=== PATIENT | female | born 1980 | race Caucasian/White ===

== ENCOUNTER → 2017-12-03 | Outpatient (CLI) | payer OTHER | LOC: LAB 17:05 → LAB SHORT 17:05 | DX: L08.9 Local infection of the skin and subcutaneous tissue, unspecified (principal); L40.8 Other psoriasis; L21.8 Other seborrheic dermatitis | CPT/HCPCS: 87070; 87205 ==

== ENCOUNTER → 2018-07-30 | Outpatient (CLI) | payer OTHER | END | disposition home or self-care (01) | LOC: LAB EV 14:30 → LAB SHORT 14:30 | DX: R10.30 Lower abdominal pain, unspecified (principal) | CPT/HCPCS: 87086 ==

== ENCOUNTER 2019-08-08 05:46 | Inpatient (IN) | payer OTHER ==
[~2019-08-08] VITALS: Ht 162.6 cm; Wt 95.6 kg
[~2019-08-08 05:46] MED LIST: CELE200 PO; DIAZ10 PO; DOCU100 PO; METO25ER PO; MIRALAX17 G1 PO; OMEP20ER PO; TIAG4 PO; VITAMIN D325 MCG PO; [UNRECOGNIZED DRUG - OTHER] PO
--- NOTE | 2019-08-08 07:22 | NUR ---
Ambulatory in Day Surgery. History, Chart, Medications and Allergies reviewed before start of procedure. Lungs clear T/O to Auscultation. Patient confirms NPO status and agrees with scheduled surgery. Pre-Op teaching done. Pt verbalizes understanding. Patient States Post-Procedure ride home has been arranged.
--- NOTE | 2019-08-08 08:23 | NUR ---
08/08/19 0823 Eileen Kimbrough PLACED INTRAOPERATIVELY BY DR. BALBUENA
[2019-08-08 13:29] LABS: BASOPHILS ABSOLUTE AUTO 0.05 K/mm3 (0.00-0.23); BASOPHILS PERCENT AUTO 0 % (0-2); EOSINOPHILS PERCENT AUTO 0 % (0-6); Hematocrit 39.8 % (33.0-51.0); Hemoglobin 12.6 g/dL (11.5-16.0); IMMATURE GRAN ABSOLUTE AUTO 0.19 K/mm3 (0.00-0.10); IMMATURE GRAN PERCENT AUTO 1 % (0-1); LYMPHOCYTES ABSOLUTE AUTO 1.39 K/mm3 (0.84-5.20); LYMPHOCYTES PERCENT AUTO 6 % (21-46); MONOCYTES ABSOLUTE AUTO 0.62 K/mm3 (0.16-1.47); MONOCYTES PERCENT AUTO 3 % (4-13); Mean Corpuscular HGB 29.4 pg (26.0-34.0); Mean Corpuscular HGB Conc 31.7 g/dL (31.5-36.5); Mean Corpuscular Volume 93 fL (80-100); Mean Platelet Volume 10.9 fL (9.1-12.4); NEUTROPHILS ABSOLUTE AUTO 20.58 K/mm3 (1.96-9.15); NEUTROPHILS PERCENT AUTO 90 % (41-73); Platelet Count 287 K/mm3 (150-400); RDW Coefficient Variation 12.6 % (11.7-14.2); RDW Standard Deviation 43.2 fL (35.1-46.3); Red Blood Cell Count 4.28 M/mm3 (3.80-5.20); White Blood Cell Count 22.83 K/mm3 (4.00-11.30)
--- NOTE | 2019-08-08 19:22 | NUR ---
SHIFT SUMMARY PT POD 0 JEAN. TRANSVERSE INCISION WITH MEDIPORE DRESSING, SCANT AMT DRAINAGE PRESENT ON STERI STRIPS X'S 2 AND MEDIPORE DRESSING. OSMAN DRAINING CLEAR YELLOW URINE. PAIN MANAGED PER EMAR.
--- NOTE | 2019-08-08 19:35 | NUR ---
PERMISSION FOR CARE PT GAVE CONSENT FOR THIS STUDENT NURSE TO PROVIDE CARE ON 08/09/19
--- NOTE | 2019-08-09 03:31 | NUR ---
SHIFT SUMMARY: PT POD #1 FOR JEAN. TRANSVERSE DRESSING INTACT WITH SMALL AMOUNT OF BLOODY DRG. SS X2 CDI. PT BERNARDA PO AND DENIES N/V. PAIN MANAGED WITH TORADOL AND 5MG OXY PER EMAR. HR IN LOW 100'S AFTER GIVING SCHED METOPROLOL. GIVEN TYLENOL IN BEGINNING OF SHIFT FOR LOW GRADE TEMP. MOM AT BEDSIDE AND SUPPORTIVE W/CARE. WILL D/C OSMAN CATHETER LATER THIS MORNING.
[2019-08-09 05:09] LABS: BASOPHILS ABSOLUTE AUTO 0.03 K/mm3 (0.00-0.23); BASOPHILS PERCENT AUTO 0 % (0-2); EOSINOPHILS ABSOLUTE AUTO 0.01 K/mm3 (0.00-0.68); EOSINOPHILS PERCENT AUTO 0 % (0-6); Hematocrit 33.7 % (33.0-51.0); Hemoglobin 10.6 g/dL (11.5-16.0); IMMATURE GRAN PERCENT AUTO 1 % (0-1); LYMPHOCYTES PERCENT AUTO 23 % (21-46); MONOCYTES ABSOLUTE AUTO 1.07 K/mm3 (0.16-1.47); MONOCYTES PERCENT AUTO 7 % (4-13); Mean Corpuscular HGB 29.6 pg (26.0-34.0); Mean Corpuscular HGB Conc 31.5 g/dL (31.5-36.5); Mean Corpuscular Volume 94 fL (80-100); Mean Platelet Volume 10.9 fL (9.1-12.4); NEUTROPHILS ABSOLUTE AUTO 11.16 K/mm3 (1.96-9.15); NEUTROPHILS PERCENT AUTO 69 % (41-73); Platelet Count 267 K/mm3 (150-400); RDW Coefficient Variation 12.7 % (11.7-14.2); RDW Standard Deviation 43.7 fL (35.1-46.3); Red Blood Cell Count 3.58 M/mm3 (3.80-5.20); White Blood Cell Count 16.07 K/mm3 (4.00-11.30)
[2019-08-09 14:09] LABS: HPV 16 Negative (Negative); HPV 18 Negative (Negative); HPV OTHER HR TYPES Negative (Negative)
--- NOTE | 2019-08-09 15:56 | NUR ---
PT GAVE THIS STUDENT RN PERMISSION TO HELP CARE FOR HER ON 08/10/19.
--- NOTE | 2019-08-09 19:19 | NUR ---
SHIFT SUMMARY PT POD 1 JEAN. TRANSVERSE DRESSING C/D/I. PAIN MANAGED PER EMAR. PT AMBULATING TO BATHROOM AND SHORT DISTANCES IN HALLWAY. VOIDING WELL, GOOD PO INTAKE-SALINE LOCKED. POSSIBLE DISCHARGE HOME IF NO COMPLICATIONS.
--- NOTE | 2019-08-10 03:23 | NUR ---
SHIFT SUMMARY: PT POD #2 JEAN. TRANSVERSE DRESSING CHANGED THIS SHIFT. PAIN MANAGED WITH MOTRIN AND OXY PER EMAR. PT AMBULATING INDEPENDENTLY. REPORTS PASSING FLATUS. MINIMAL BLOODY DRG TO ROSIE PAD. PT BERNARDA PO AND VOIDING WELL. MOM AT BEDSIDE. PLAN FOR POSSIBLE DISCHARGE TODAY.
[2019-08-10] MEDS ORDERED: ACET325 PO (09:01)
[2019-08-10] MEDS ORDERED: Percocet 5-3251 EACH PO (09:02)
--- NOTE | 2019-08-10 11:11 | NUR ---
DISCHARGE: PACKET PRINTED AND PT/PT MOM EDUCATED. PT SENT WITH SCRIPTS. PT LEFT UNIT VIA WHEELCHAIR WITH ELIAS, CUSTOMER SERVICE SALES ASSOCIATE AND MOTHER AT ABOUT 1005
== END 2019-08-10 10:15 | disposition home or self-care (01) | DRG 743 ==
LOC: ORSCMMR 05:46 → ORD 07:30 → ORSCMMR 07:30 → ORD 09:30 → SURS 11:28 → ORSCMMR 11:28 → SURS 12:27
PROVIDERS: ADMIT Obstetrics & Gynecology
PROC: 0UT90ZL Resection of Uterus, Supracervical, Open Approach (ICD-10-PCS; principal; 2019-08-08 07:30)
PROC: 0UT70ZZ Resection of Bilateral Fallopian Tubes, Open Approach (ICD-10-PCS; 2019-08-08 07:30)
PROC: 0UT00ZZ Resection of Right Ovary, Open Approach (ICD-10-PCS; 2019-08-08 07:30)
DX: N83.291 Other ovarian cyst, right side (principal); N92.1 Excessive and frequent menstruation with irregular cycle; R10.2 Pelvic and perineal pain
CPT/HCPCS: 36415; 85025; 87624; A9270; A9270-GY; G0123; J0330; J0690; J1100; J1170; J1650; J1885; J2250; J2370; J2405; J2704; J3010; J7120

== ENCOUNTER 2023-12-30 10:21 | Inpatient (IN) | payer OTHER ==
[~2023-12-30] VITALS: Ht 172.7 cm; Wt 90.0 kg
[~2023-12-30 10:21] MED LIST changes: +ACET325 PO; +Percocet 5-3251 EACH PO
[2023-12-30] MEDS ORDERED: NS 1,000 ML IV SCH (10:35)
[2023-12-30] MEDS ORDERED: Magnesium Sulf 2 GM/Water 50ML 50 ML IV ONE (10:35)
[2023-12-30 10:45] LABS: Source, Urine Straight Cath
[2023-12-30 10:50] LABS: Appearance, Urine Hazy (Clear); Bilirubin, Urine Neg (Neg); Blood, Urine 1+ (Neg); Glucose Qualitative, Urine Neg (Neg); Ketones, Urine 2+ (Neg); Leukocyte Esterase, Urine Neg (Neg); Nitrite, Urine Neg (Neg); Protein, Urine 2+ (Neg); Specific Gravity, Urine 1.025 (1.003-1.022); Urobilinogen, Urine NORM (Normal)
[2023-12-30] MEDS ORDERED: Midazolam HCl 1MG / ML 2ML Vial IV ONE (10:50)
[2023-12-30 10:52] LABS: BASOPHILS ABSOLUTE AUTO 0.05 K/mm3 (0.00-0.23); BASOPHILS PERCENT AUTO 0 % (0-2); EOSINOPHILS ABSOLUTE AUTO 0.07 K/mm3 (0.00-0.68); EOSINOPHILS PERCENT AUTO 1 % (0-6); Hematocrit 44.6 % (33.0-51.0); Hemoglobin 14.8 g/dL (11.5-16.0); IMMATURE GRAN PERCENT AUTO 2 % (0-1); LYMPHOCYTES ABSOLUTE AUTO 2.58 K/mm3 (0.84-5.20); LYMPHOCYTES PERCENT AUTO 21 % (21-46); MONOCYTES ABSOLUTE AUTO 0.71 K/mm3 (0.16-1.47); MONOCYTES PERCENT AUTO 6 % (4-13); Mean Corpuscular HGB 31.2 pg (26.0-34.0); Mean Corpuscular HGB Conc 33.2 g/dL (31.5-36.5); Mean Corpuscular Volume 94 fL (80-100); Mean Platelet Volume 10.3 fL (9.1-12.4); NEUTROPHILS ABSOLUTE AUTO 8.93 K/mm3 (1.96-9.15); NEUTROPHILS PERCENT AUTO 71 % (41-73); Platelet Count 300 K/mm3 (150-400); RDW Coefficient Variation 11.8 % (11.7-14.2); RDW Standard Deviation 40.9 fL (35.1-46.3); Red Blood Cell Count 4.74 M/mm3 (3.80-5.20); White Blood Cell Count 12.54 K/mm3 (4.00-11.30)
[2023-12-30 11:07] LABS: Color, Urine Pale Yellow (P-Yellow)
[2023-12-30 11:13] LABS: Albumin, Blood 3.6 g/dL (3.4-5.0); Albumin/Globulin Ratio 0.7 (0.8-1.8); Bilirubin, Total 0.2 mg/dL (0.1-1.0); Bun/Creatinine Ratio 33.6 (12.0-20.0); Calcium, Blood 8.6 mg/dL (8.5-10.1); Creatinine, Blood 0.48 mg/dL (0.40-1.00); Globulin, Blood 4.9 g/dL (2.2-4.0); Magnesium, Blood 1.7 mg/dL (1.6-2.4); Potassium, Blood 3.6 mmol/L (3.5-5.5); Prolactin 123.9 ng/mL; Total Protein, Blood 8.5 g/dL (6.4-8.2)
[2023-12-30 11:14] LABS: Red Blood Cells, Urine 0-2 /hpf (0-2); Squamous Epithelial Cells Mod /hpf (Few); White Blood Cells, Urine 0-2 /hpf (0-5)
[2023-12-30 11:15] LABS: Amorphous Mod (0-Heavy); Bacteria Rare /hpf; Transitional Epithelial Cells Rare /hpf (0-Rare)
[2023-12-30] MEDS ORDERED: Midazolam HCL 1 MG/ML 5MLVIAL ONE (11:17)
[2023-12-30] MEDS ORDERED: levETIRAcetam 4,500 MG in NS 100 ML IV ONE ×2 (11:25→11:45)
[2023-12-30] MEDS ORDERED: Midazolam HCL 1 MG/ML 5MLVIAL IV ONE (11:30)
[2023-12-30] MEDS ORDERED: Metoclopramide HCl 5MG / ML 2ML Vial IV ONE (13:25)
[2023-12-30] MEDS ORDERED: Ketorolac Tromethamine 30mg Vial IV ONE (13:25)
[2023-12-30] MEDS ORDERED: Acetaminophen 325 MG TABLET PO PRN (15:10)
[2023-12-30] MEDS ORDERED: Cyclobenzaprine HCl 10 MG Tab PO PRN (15:10)
[2023-12-30] MEDS ORDERED: OxyCODONE 5 mg/Acetamin 325 mg TABLET PO PRN (15:10)
[2023-12-30 16:30] VITALS: BP 121/73
[2023-12-30] MEDS ORDERED: Midazolam HCl 1MG / ML 2ML Vial IV PRN (17:30)
--- NOTE | 2023-12-30 18:00 | NUR ---
PT ARRIVED TO U10 VIA RSORRENTO FROM ER. PT ABLE TO STAND AND TRANSFER FROM RSORRENTO TO BED, GAIT UNSTEADY, 2 STAFF ASSIST. ADMISSION DOCUMENTATION COMPLETED WITH PT'S MOTHER AND SISTER. DR PLUNKETT ROUNDED THIS EVENING AND REVIEWED PLAN OF CARE, PT AND FAMILY HAD NO FURTHER QUESTIONS OR CONCERNS. PT'S SISTER INFORMED THIS RN THAT PT OFTEN HAS WHAT SHE DESCRIBED "SCREAMING SEIZURES" WHERE HER BODY TENSES AND SHE YELLS OUT. NO SEIZURE ACTIVITIES NOTED SINCE ARRIVAL TO PCU. PT HAS FAMILY AT BEDSIDE. PT HAS COGNITIVE DELAY. BED IN LOWEST, LOCKED POSITION AND CALL LIGHT IN REACH. WILL CONTINUE TO MONITOR AND GIVE REPORT TO NOC SHIFT RN.
--- NOTE | 2023-12-30 18:19 | NUR ---
@1810 PT'S FAMILY REPORTED A WITNESSED APROX 30SEC SEIZURE WHERE PT CURLED UP HER LEFT HAND AND REPEATED "MOMMA MOMMA MOMMA." AFTER PT WAS BACK TO HER PRIOR MENTATION AND CONDITION. THIS RN DID NOT INTERVENE AT THIS TIME THE SEIZURE APPEARED TO RESOLVE QUICKLY. SEIZURE PADS AND SUCTION SETUP IN PLACE. WILL CONTINUE TO MONITOR.
[2023-12-30 20:40] VITALS: BP 111/81
[2023-12-30] MEDS ORDERED: Diazepam 5 MG Tab PO SCH (21:00)
[2023-12-30] MEDS ORDERED: LevETIRAcetam 500 MG Tab PO SCH (21:00)
[2023-12-30] MEDS ORDERED: Docusate Sodium 100 MG Cap PO SCH (21:00)
[2023-12-30] MEDS ORDERED: OXcarbazepine 300 MG Tab PO SCH (21:00)
[2023-12-30] MEDS ORDERED: Metoprolol Succinate 25 MG TABCR PO SCH (21:00)
[2023-12-30] MEDS ORDERED: Celecoxib 100 MG Cap PO SCH (21:00)
[2023-12-30 23:52] VITALS: BP 107/51
[2023-12-31 04:54] VITALS: BP 100/66
--- NOTE | 2023-12-31 05:20 | NUR ---
SHIFT SUMMARY ASSUMED CARE OF PT AT 1900. PT IS A/OX1. FAMILY STATES THAT PT IS BACK TO BASELINE MENTATION. LUNG SOUNDS CLEAR. HEART SOUNDS REGULAR. PT HAD ONE FAMILY WITNESSED SEIZURE WHICH WAS THE "SCREAMING" KIND PER FAMILY AND NO OTHER EVENTS DURING THE NOC. PT STILL WEAK PER FAMILY. PT WAS UNABLE TO VOID T/O THE NOC. PT WAS STREAIGHT CATHED TWO TIMES THIS SHIFT. 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 AFTER SECOND STRAIGHT CATH, THERE WAS A SMALL AMOUNT OF BLOOD ON THE CATHETER. PT TOLERATED PROCEDURE WELL.
[2023-12-31 05:59] LABS: BASOPHILS ABSOLUTE AUTO 0.04 K/mm3 (0.00-0.23); BASOPHILS PERCENT AUTO 0 % (0-2); EOSINOPHILS ABSOLUTE AUTO 0.04 K/mm3 (0.00-0.68); EOSINOPHILS PERCENT AUTO 0 % (0-6); Hematocrit 41.5 % (33.0-51.0); Hemoglobin 13.9 g/dL (11.5-16.0); IMMATURE GRAN ABSOLUTE AUTO 0.06 K/mm3 (0.00-0.10); IMMATURE GRAN PERCENT AUTO 1 % (0-1); LYMPHOCYTES ABSOLUTE AUTO 3.47 K/mm3 (0.84-5.20); LYMPHOCYTES PERCENT AUTO 33 % (21-46); MONOCYTES PERCENT AUTO 6 % (4-13); Mean Corpuscular HGB 31.2 pg (26.0-34.0); Mean Corpuscular HGB Conc 33.5 g/dL (31.5-36.5); Mean Corpuscular Volume 93 fL (80-100); Mean Platelet Volume 9.9 fL (9.1-12.4); NEUTROPHILS ABSOLUTE AUTO 6.39 K/mm3 (1.96-9.15); NEUTROPHILS PERCENT AUTO 60 % (41-73); Platelet Count 249 K/mm3 (150-400); RDW Coefficient Variation 11.9 % (11.7-14.2); RDW Standard Deviation 40.7 fL (35.1-46.3); Red Blood Cell Count 4.45 M/mm3 (3.80-5.20)
[2023-12-31] MEDS ORDERED: Omeprazole 20 MG CapCR PO SCH (06:00)
[2023-12-31 06:18] LABS: Albumin, Blood 3.3 g/dL (3.4-5.0); Albumin/Globulin Ratio 0.8 (0.8-1.8); Bilirubin, Total 0.3 mg/dL (0.1-1.0); Bun/Creatinine Ratio 20.4 (12.0-20.0); Calcium, Blood 8.1 mg/dL (8.5-10.1); Creatinine, Blood 0.49 mg/dL (0.40-1.00); Globulin, Blood 4.3 g/dL (2.2-4.0); Magnesium, Blood 1.8 mg/dL (1.6-2.4); Phosphorus, Blood 2.2 mg/dL (2.5-4.9); Potassium, Blood 3.7 mmol/L (3.5-5.5); Total Protein, Blood 7.6 g/dL (6.4-8.2)
[2023-12-31 07:55] VITALS: BP 102/66
[2023-12-31] MEDS ORDERED: Potassium Phos/Sodium Phos 250 MG PACK PO ONE (08:00)
[2023-12-31] MEDS ORDERED: Cholecalciferol 1000 Unit Tablet (=25MCG) PO SCH (09:00)
[2023-12-31] MEDS ORDERED: Enoxaparin 40 MG/0.4 ML SYR SC SCH (09:00)
[2023-12-31] MEDS ORDERED: LevETIRAcetam 500 MG Tab PO SCH (09:00)
[2023-12-31] MEDS ORDERED: Diazepam 5 MG Tab PO SCH (09:00)
--- NOTE | 2023-12-31 10:23 | NUR ---
ASSUMED CARE OF PT AT 0700 THIS AM. SEVERAL SMALL SEIZURES REPORTED OVERNIGHT, NO GTC ACTIVITY NOTED. PT'S MOTHER STAYED WITH HER OVERNIGHT, PER HER REPORT PT'S MENTATION IS BETTER, BUT STILL NOT BACK TO BASELINE. USUALLY PT IS ABLE TO FEED HERSELF WITH UTENSILS, USED HER HANDS THIS AM TO EAT BREAKFAST. MOTHER REPORTS PT'S BASELINE IS A FEW PARTIAL SEIZURES PER MONTH, NOT PER DAY. KEPPRA INCREASED BY DR PLUNKETT THIS AM. PLAN IS TO MONITOR FOR EFFECTIVINESS. FAMILY AT BEDSIDE. CALL LIGHT IN REACH. SEE DOCUMENTED VS AND ASSESSMENT.
[2023-12-31 12:38] VITALS: BP 103/68
[2023-12-31 16:23] VITALS: BP 110/68
--- NOTE | 2023-12-31 17:39 | NUR ---
NO ACUTE CHANGES T/O THE SHIFT. PT WAS BLADDER SCANNED AND WAS ABLE TO VOID ON HER OWN TODAY, NO STRAIGHT CATH NEEDED. PT'S MOTHER/FAMILY AT BEDSIDE T/O THE DAY AND STATE THE PT IS SLOWLY RETURNING TO HER MENTAL BASELINE. PARTIAL SEIZURES TODAY WERE SHORT AND SELF LIMIITNG, LASTING 30 SEC OR LESS. NO GTC ACTIVITY NOTED. VSS. PT MEDICATED FOR HEADACHE T/O THE DAY. PT'S MOTHER WILL STAY AT BEDSIDE AGAIN TONIGHT SHE HELPS THE PT REMAIN CALM AND FEEL MORE COMFORTABLE. NO NEEDS OR CONCERNS AT THIS TIME. PT'S MOTHER IS ABLE TO USE CALL LIGHT, CALL LIGHT IN REACH, WILL CONTINUE TO MONITOR AND GIVE REPORT TO NOC SHIFT RN.
[2023-12-31 19:35] VITALS: BP 124/104
[2024-01-01 03:50] VITALS: BP 100/68
--- NOTE | 2024-01-01 06:23 | NUR ---
SHIFT SUMMARY PT RESTED QUIETLY DURING THE NIGHT. NO SEIZURE ACTIVITY NOTED. VSS. MOTHER AT BEDSIDE. MOTHER STATES, "SHE IS BACK TO HER BASELINE". POSSIBLE DISCHARGE TO HOME TODAY
== END 2024-01-01 12:55 | disposition home or self-care (01) | DRG 101 ==
LOC: ER 10:21 → PCU 14:43
PROVIDERS: Student in an Organized Health Care Education/Training Program; ADMIT Family Medicine
DX: G40.401 Other generalized epilepsy and epileptic syndromes, not intractable, with status epilepticus (principal); Z79.899 Other long term (current) drug therapy; R94.31 Abnormal electrocardiogram [ECG] [EKG]; Z88.8 Allergy status to other drugs, medicaments and biological substances; E66.3 Overweight; Z90.710 Acquired absence of both cervix and uterus; Z90.721 Acquired absence of ovaries, unilateral; Z90.79 Acquired absence of other genital organ(s); Z98.890 Other specified postprocedural states; Z68.28 Body mass index [BMI] 28.0-28.9, adult
CPT/HCPCS: 36415; 70450; 71045; 80053; 81001; 81025; 83735; 83880; 84100; 84146; 84484; 84703; 85025; 85379; 96365; 96367; 96375; 96376; 99285-25; A9270; J1650; J1885; J1953; J2250; J2765; J3475; J7030; P9612

== ENCOUNTER 2024-09-14 09:02 | Inpatient (IN) | payer OTHER ==
[~2024-09-14] VITALS: Ht 165.1 cm; Wt 91.5 kg
[2024-09-14] VITALS (20 sets, daily range): BP systolic 93–119; BP diastolic 42–69
[~2024-09-14 09:02] MED LIST changes: +CYCL10 PO; -[UNRECOGNIZED DRUG - OTHER] PO
[2024-09-14] MEDS ORDERED: LEVETIRACETAM 500 MG IV ONE (09:10)
[2024-09-14] MEDS ORDERED: NS 1,000 ML IV SCH ×2 (09:10→10:05)
[2024-09-14] MEDS ORDERED: Diazepam 5 MG / ML 2ML SYR IV PRN ×2 (09:15→13:20)
[2024-09-14] MEDS ORDERED: levETIRAcetam 4,500 MG in NS 100 ML IV ONE (09:20)
[2024-09-14 09:24] LABS: BASOPHILS ABSOLUTE AUTO 0.06 K/mm3 (0.00-0.23); BASOPHILS PERCENT AUTO 1 % (0-2); EOSINOPHILS ABSOLUTE AUTO 0.02 K/mm3 (0.00-0.68); EOSINOPHILS PERCENT AUTO 0 % (0-6); Hematocrit 40.5 % (33.0-51.0); Hemoglobin 13.9 g/dL (11.5-16.0); IMMATURE GRAN ABSOLUTE AUTO 0.14 K/mm3 (0.00-0.10); IMMATURE GRAN PERCENT AUTO 1 % (0-1); LYMPHOCYTES ABSOLUTE AUTO 2.27 K/mm3 (0.84-5.20); LYMPHOCYTES PERCENT AUTO 18 % (21-46); MONOCYTES ABSOLUTE AUTO 0.61 K/mm3 (0.16-1.47); MONOCYTES PERCENT AUTO 5 % (4-13); Mean Corpuscular HGB 31.1 pg (26.0-34.0); Mean Corpuscular HGB Conc 34.3 g/dL (31.5-36.5); Mean Corpuscular Volume 91 fL (80-100); Mean Platelet Volume 10.1 fL (9.1-12.4); NEUTROPHILS PERCENT AUTO 76 % (41-73); Platelet Count 257 K/mm3 (150-400); RDW Coefficient Variation 11.8 % (11.7-14.2); Red Blood Cell Count 4.47 M/mm3 (3.80-5.20)
[2024-09-14 09:52] LABS: U Amphetamine Screen Not Detected; U Barbituate Screen Not Detected; U Benzodiazapine Screen DETECTED; U Buprenorphine Screen Not Detected; U Cannabinoids Screen Not Detected; U Cocaine Screen Not Detected; U Methadone Screen Not Detected; U Methamphetamine Screen Not Detected; U Opiates Screen Not Detected; U Oxycodone Screen Not Detected; U Phencyclidine Screen Not Detected
[2024-09-14 10:00] LABS: Alanine Aminotransfer (ALT/SGP 11 U/L (12-78); Albumin, Blood 3.3 g/dL (3.4-5.0); Albumin/Globulin Ratio 0.8 (0.8-1.8); Alk Phos 119 U/L (50-136); Anion Gap 15 mmol/L (3-11); Aspartate Aminotrans (AST/SGOT 12 U/L (12-37); Bilirubin, Total 0.3 mg/dL (0.1-1.0); Blood Urea Nitrogen 14 mg/dL (8-24); Bun/Creatinine Ratio 34.7 (12.0-20.0); CO2, Blood 20 mmol/L (21-32); Calcium, Blood 8.6 mg/dL (8.5-10.1); Chloride, Blood 102 mmol/L (98-108); Globulin, Blood 4.4 g/dL (2.2-4.0); Glomerular Filtration Rate 125 (60-); Glucose, Blood 123 mg/dL (70-99); Magnesium, Blood 1.8 mg/dL (1.6-2.4); Prolactin 6.4 ng/mL; Sodium, Blood 133 mmol/L (136-145); Total Protein, Blood 7.7 g/dL (6.4-8.2); Valproic Acid <3.0 ug/mL (50.0-100.0)
[2024-09-14 11:18] LABS: Source, Urine Foley catheter
[2024-09-14 11:55] LABS: Influenza A, PCR NEGATIVE (NEGATIVE); Influenza B, PCR NEGATIVE (NEGATIVE); Resp Syncytial Virus, PCR NEGATIVE (NEGATIVE); SARS-Cov-2 (COVID-19) PCR, MMC NEGATIVE (NEGATIVE)
[2024-09-14 12:01] LABS: Appearance, Urine Turbid (Clear); Bilirubin, Urine Neg (Neg); Blood, Urine 1+ (Neg); Glucose Qualitative, Urine Neg (Neg); Ketones, Urine 2+ (Neg); Leukocyte Esterase, Urine Neg (Neg); Nitrite, Urine Neg (Neg); Protein, Urine 1+ (Neg); Specific Gravity, Urine 1.025 (1.003-1.022); Urobilinogen, Urine NORM (Normal)
[2024-09-14 12:03] LABS: Color, Urine Pale Yellow (P-Yellow)
[2024-09-14 12:04] LABS: Amorphous Heavy (0-Heavy)
[2024-09-14 12:05] LABS: Bacteria Not Seen /hpf; Red Blood Cells, Urine 0-2 /hpf (0-2); Squamous Epithelial Cells Rare /hpf (Few); White Blood Cells, Urine 0-2 /hpf (0-5)
[2024-09-14] MEDS ORDERED: DIAZ5 PO (16:32)
[2024-09-14] MEDS ORDERED: DIAZ10 PO (16:33)
[2024-09-14] MEDS ORDERED: [UNRECOGNIZED DRUG - CODE] PO (16:34)
--- NOTE | 2024-09-14 17:38 | NUR ---
SHIFT SUMMARY PATIENT ARRIVED FROM ED AT APPROX 1615. PT SLOW TO RESPOND. ALERT, ORIENTED TO SELF, SITUATION AND YEAR (NOT MONTH). FOLLOWS COMMANDS, ALLOW FOR ADDITIONAL TIME TO COMPLETE REQUESTS AND REPHRASE/REPEAT NEEDED AT TIMES. +BURDEN. +COUGH/GAG/SWALLOW, PERRLA. ABLE TO MOVE ALL EXTREMITIES. CARDIAC: SINUS TACHYCARDIA, SBP 90-110S HR 100-110S. MOTHER STATES HX TACHYCARDIA AND TAKES METOPROLOL AT HOME- SEE MED REC. LUNGS: CLEAR/DIM, PROVIDED EDUCATION RISK FOR ASPIRATION WITH SZ TO FAMILY. GI ABDOMEN SOFT/NON TENDER, HYPOACTIVE BOWEL TONES. HX CONSTIPATION. LAST KNOWN BM: 10/11 PER MOM. : OSMAN DRAINING TO GRAVITY, CONTINIENT AT HOME. URINE: CLEAR/YELLOW SKIN: INTACT, NO OPEN AREAS OR REDNESS MOBILITY: INDEPENDENT AT HOME, PARTICIPATED IN BED MOBILITY, AROM AND DRESSING. DOES NOT USE ANY MOBILTIY DEVICES. PER MOM PT COGNITION/DEVELOPMENTAL LEVEL OF AN 8 YEAR OLD AT BASELINE. NEUROLOLGIST IS IN [place] - DR KOROMA. RESTING WITH HER EYES CLOSED AT THIS TIME. FAMILY AT BEDSIDE.
--- NOTE | 2024-09-14 18:40 | NUR ---
Pt. is somnolent and mostly non responsive. Family are present. Facilitate a life review and consider matters of pablo and belief. Family verbalized that their fishing tool technician oil well would be visiting. During the visit this supervisor pole yard was called to a different code blue. Family welcomed this supervisor pole yard to return.
[2024-09-14] MEDS ORDERED: levETIRAcetam 1,000 MG in NS 100 ML IV SCH (21:00)
[2024-09-14] MEDS ORDERED: Diazepam 5 MG Tab PO SCH (21:00)
[2024-09-15] VITALS (20 sets, daily range): BP systolic 97–130; BP diastolic 47–84
[2024-09-15 03:59] LABS: BASOPHILS ABSOLUTE AUTO 0.05 K/mm3 (0.00-0.23); BASOPHILS PERCENT AUTO 0 % (0-2); EOSINOPHILS ABSOLUTE AUTO 0.04 K/mm3 (0.00-0.68); EOSINOPHILS PERCENT AUTO 0 % (0-6); Hematocrit 39.7 % (33.0-51.0); Hemoglobin 13.4 g/dL (11.5-16.0); IMMATURE GRAN ABSOLUTE AUTO 0.11 K/mm3 (0.00-0.10); IMMATURE GRAN PERCENT AUTO 1 % (0-1); LYMPHOCYTES ABSOLUTE AUTO 3.55 K/mm3 (0.84-5.20); LYMPHOCYTES PERCENT AUTO 28 % (21-46); MONOCYTES ABSOLUTE AUTO 0.74 K/mm3 (0.16-1.47); MONOCYTES PERCENT AUTO 6 % (4-13); Mean Corpuscular HGB 31.2 pg (26.0-34.0); Mean Corpuscular HGB Conc 33.8 g/dL (31.5-36.5); Mean Corpuscular Volume 93 fL (80-100); NEUTROPHILS ABSOLUTE AUTO 8.43 K/mm3 (1.96-9.15); NEUTROPHILS PERCENT AUTO 65 % (41-73); Platelet Count 237 K/mm3 (150-400); RDW Coefficient Variation 11.9 % (11.7-14.2); RDW Standard Deviation 40.5 fL (35.1-46.3); Red Blood Cell Count 4.29 M/mm3 (3.80-5.20); White Blood Cell Count 12.92 K/mm3 (4.00-11.30)
--- NOTE | 2024-09-15 05:46 | NUR ---
SHIFT SUMMERY PT HAS HAD NO SEIZURE ACTIVITY OVERNIGHT. MOTHER HAS STAYED AT BEDSIDE. NO ACUTE CHANGES OVER NIGHT. SR ON THE FINANCE LECTURER. BP WNL. AFEBRILE. OXYGEN SAT >92% ON ROOM AIR. NO COMPLAINTS OF PAIN/DISCOMFORT.
[2024-09-15 05:53] LABS: Bun/Creatinine Ratio 22.9 (12.0-20.0); Calcium, Blood 8.1 mg/dL (8.5-10.1); Creatinine, Blood 0.44 mg/dL (0.40-1.00); Potassium, Blood 3.5 mmol/L (3.5-5.5)
[2024-09-15] MEDS ORDERED: Acetaminophen 325 MG TABLET PO PRN (06:40)
[2024-09-15] MEDS ORDERED: [UNRECOGNIZED DRUG - OTHER] PO (07:34)
[2024-09-15] MEDS ORDERED: NS IV STA (08:00)
[2024-09-15] MEDS ORDERED: FOSPHENYTOIN PE IV STA (08:00)
--- NOTE | 2024-09-15 08:00 | NUR ---
NOTIFIED RESIDENT DR. [facility] HOSPITALIST DR. VENTURA REGARDING MULTIPLE SEIZURES THIS MORNING DESPITE 2 PRN ADMINISTRATIONS OF VALIUM. VERBAL ORDERS FOR PHARMACY TO DOSE LOADING DOSE OF PHOSPHENYTOIN. DR. VENTURA TO CHECK WITH [facility] FOR POSSIBLE TRANSFER. ICU STAFF TO ASSIST WITH CHECKING OTHER FACILITY POSSIBILITIES. PT CONFUSED AND EMOTIONAL, TACHYCARDIC IN 120S BUT OTHERWISE STABLE. MOTHER AT BEDSIDE.
--- NOTE | 2024-09-15 08:04 | NUR ---
SEIZURE ACTIVITY REPORTED BY FELT HAT FLANGING OPERATOR RN AT 0645 - 5 MG VALIUM IV GIVEN SEIZURE ACTIVITY 1 MIN - 0722 - 5MG VALIUM IV GIVEN SEIZURE ACTIVITY 2 MIN - 0750, SELF-LIMITING. PROVIDERS NOTIFIED. ORDERS UPDATED.
[2024-09-15] MEDS ORDERED: Diazepam 5 MG Tab PO SCH (09:00)
[2024-09-15] MEDS ORDERED: Cholecalciferol 1000 Unit Tablet (=25MCG) PO SCH (09:00)
[2024-09-15] MEDS ORDERED: levETIRAcetam 1,500 MG in NS 100 ML IV SCH (09:00)
[2024-09-15] MEDS ORDERED: Celecoxib 100 MG Cap PO SCH (09:00)
[2024-09-15] MEDS ORDERED: Heparin Sodium 5000 Units/ML 1ML MDV SC SCH (09:00)
[2024-09-15] MEDS ORDERED: Metoprolol Succinate 25 MG TABCR PO SCH (09:00)
[2024-09-15] MEDS ORDERED: Docusate Sodium 100 MG Cap PO SCH (09:00)
[2024-09-15 09:07] LABS: Albumin, Blood 3.1 g/dL (3.4-5.0); Albumin/Globulin Ratio 0.7 (0.8-1.8); Bilirubin, Total 0.5 mg/dL (0.1-1.0); Bun/Creatinine Ratio 23.5 (12.0-20.0); Calcium, Blood 7.8 mg/dL (8.5-10.1); Creatinine, Blood 0.47 mg/dL (0.40-1.00); Globulin, Blood 4.6 g/dL (2.2-4.0); Magnesium, Blood 1.9 mg/dL (1.6-2.4); Potassium, Blood 3.6 mmol/L (3.5-5.5); Total Protein, Blood 7.7 g/dL (6.4-8.2)
[2024-09-15] MEDS ORDERED: Cyclobenzaprine HCl 10 MG Tab PO PRN (10:55)
--- NOTE | 2024-09-15 12:02 | NUR ---
CONTACTED DR. VENTURA FOR ORDERS. PT UNABLE TO SAFELY TAKE PO MEDICATIONS DUE TO SEIZURE ACTIVITY AND SEDATION/POSTICTAL STATUS. VERBAL ORDERS FOR IVF D51/2NS AT 75 ML/HR, 5 MG IV METOPROLOL Q6 FOR UNTIL ABLE TO TAKE PO MEDICATIONS.
[2024-09-15] MEDS ORDERED: D5W-1/2NS 1,000 ML IV SCH (12:10)
[2024-09-15] MEDS ORDERED: Metoprolol Tartrate 1 MG/ML 5 ML VIAL IV SCH (12:15)
--- NOTE | 2024-09-15 14:49 | NUR ---
Pt. is awake in bed. Mother is at bedside when she welcomes my visit. Facilitated introductions as the Pt. was not responsive during my last visit. Pt. display evidence of a difficult time speaking so this communications superintendent kept the visit short. Prayed for the Pt. Pt. and mother both welcomed this communications superintendent to return.
[2024-09-15 17:47] LABS: KEPPRA (LEVETIRACETAM) 12 ug/mL (10-40)
--- NOTE | 2024-09-15 18:09 | NUR ---
[facility] CALLED REGARDING POTENTIAL TRANSFER OF PT TO [address] [place] [address]. WILL CALL HOSPITALIST BACK WHEN THEY HAVE NEUROLOGY ON THE PHONE.
[2024-09-15] MEDS ORDERED: Ondansetron HCl 2 MG / ML 2ML Vial IV PRN (19:25)
[2024-09-15] MEDS ORDERED: Diazepam 5 MG / ML 2ML SYR IV ONE (20:20)
--- NOTE | 2024-09-15 20:58 | NUR ---
ASSUMED CARE AT APPROX 1900 PATIENT IS ALERT AND ORIENTED TO SELF/FAMILY AND FOLLOWING COMMANDS. FORGETFUL AND UNABLE TO STATE DATE OR PLACE, FAMILY STATES AT BASELINE SHE IS ORIENTED X4. SP02 95% ON RA. HR ST 110-130. BP STABLE. OSMAN PATENT AND DRAINING TO GRAVITY. PATIENT INDEPENDENT WITH REPOSITIONING. MEDICATED FOR N/V PER EMAR. PATIENT JUST ATE FOR THE FIRST TIME IN ABOUT A DAY AND GOT NAUSEOUS. CALL LIGHT IN REACH.
[2024-09-15] MEDS ORDERED: Cyclobenzaprine HCl 10 MG Tab PO SCH (21:00)
[2024-09-15] MEDS ORDERED: TIAGABINE PO SCH (21:00)
[2024-09-15] MEDS ORDERED: FOSPHENYTOIN PE IV SCH (21:00)
[2024-09-15] MEDS ORDERED: NS IV SCH (21:00)
--- NOTE | 2024-09-15 21:36 | NUR ---
CALLED REPORT TO JAMAL NEUMANN AT [facility]. FAMILY AWARE OF TRANSFER
--- NOTE | 2024-09-15 22:30 | NUR ---
PATIENT TRANSFERED AT 2200 VIA EMS. SON WITH WITH. ALL BELONGINGS AND HOME MEDS WITH FAMILY
== END 2024-09-15 22:02 | disposition short-term general hospital (02) | DRG 101 ==
LOC: ER 09:02 → ERHOLD 13:17 → ICUE 15:58
PROVIDERS: Family Medicine; Internal Medicine; Student in an Organized Health Care Education/Training Program; ADMIT Internal Medicine
PROC: 0T9B70Z Drainage of Bladder with Drainage Device, Via Natural or Artificial Opening (ICD-10-PCS; principal; 2024-09-14)
DX: G40.901 Epilepsy, unspecified, not intractable, with status epilepticus (principal); E87.1 Hypo-osmolality and hyponatremia; E87.20 Acidosis, unspecified; Z88.8 Allergy status to other drugs, medicaments and biological substances; I95.9 Hypotension, unspecified; E66.9 Obesity, unspecified; Z79.899 Other long term (current) drug therapy; Z87.891 Personal history of nicotine dependence; Z90.722 Acquired absence of ovaries, bilateral; Z90.79 Acquired absence of other genital organ(s); Z98.890 Other specified postprocedural states; Z68.33 Body mass index [BMI] 33.0-33.9, adult
CPT/HCPCS: 0241U; 36415; 51702; 70450; 71045; 80048; 80053; 80164; 80177; 81001; 82330; 82947; 83605; 83735; 84146; 85025; 96374; 96375; 99285-25; A9270; J1644; J1953; J2405; J3360; J7030; J7042; Q2009